=== PATIENT | male | born 1975 | race Caucasian/White ===

== ENCOUNTER 2020-03-16 18:04 | Emergency (ER) | payer BC, OTHER ==
[2020-03-16] MEDS ORDERED: Lidocaine 1% 10 ML MDV INJECT ONE (18:27)
[2020-03-16] MEDS ORDERED: Diphtheria,Pertussis(Acell),Tetanus Vaccine 0.5 ML Syringe IM ONE (18:28)
--- NOTE | 2020-03-16 18:33 | EDM.PDOC ---
ED HPI GENERAL MEDICAL PROBLEM - General Chief Complaint: Laceration Stated Complaint: FINGER LAC Time Seen by Provider: 03/16/20 18:25 Source of Information: Reports: Patient History Limitations: Reports: No Limitations - History of Present Illness INITIAL COMMENTS - FREE TEXT/NARRATIVE: 84-year-old male presents to the ED after stabbing himself accidentally with a hunting knife [place]. He states the piece of meat he was cutting off of one of the legs came loose and his hand flew back striking the tip of his hunting knife on the dorsal aspect of his thumb. Suffered approximately 2.5 cm laceration across the dorsal aspect of his thumb. Cannot remember when his last tetanus toxoid was administered. Will be updated today. Wound looks like it will require suture repair. Onset: Today, Sudden Duration: Hour(s):, Other (Bleeding is stopped.) Location: Reports: Upper Extremity, Left (Left dorsal thumb just proximal to the PIP joint.) Quality: Reports: Ache Severity: Mild Improves with: Reports: Rest Worsens with: Reports: Movement Context: Denies: Activity, Exercise, Lifting, Sick Contact, Trauma Associated Symptoms: Denies: No Other Symptoms, Confusion, Chest Pain, Cough, cough w sputum, Diaphoresis, Fever/Chills, Headaches, Loss of Appetite, Malaise, Syncope Treatments PRESS [employer]ER: Reports: Other (see below) - Related Data Allergies Allergy/AdvReac Type Severity Reaction Status Date / Time No Known Allergies Allergy Verified 03/16/20 18:26 Social & Family History - Tobacco Use Tobacco Use Status *Q: Never Tobacco User - Caffeine Use Caffeine Use: Reports: Coffee - Recreational Drug Use Recreational Drug Use: No - Living Situation & Occupation Living situation: Reports: Occupation: Employed ED ROS GENERAL - Review of Systems Review Of Systems: See Below Constitutional: Reports: No Symptoms HEENT: Reports: No Symptoms Respiratory: Reports: No Symptoms Cardiovascular: Reports: No Symptoms Endocrine: Reports: No Symptoms GI/Abdominal: Reports: No Symptoms : Reports: No Symptoms Musculoskeletal: Reports: No Symptoms Skin: Reports: No Symptoms Neurological: Reports: No Symptoms Psychiatric: Reports: No Symptoms Hematologic/Lymphatic: Reports: No Symptoms ED EXAM, SKIN/RASH Exam: See Below Exam Limited By: No Limitations General Appearance: Alert, WD/WN, No Apparent Distress, Other (Temperature is 37.4 but he does not feel warm to palpation. Heart rate is 67 respiratory 16 with O2 sats of 97% room air BP is 134/85.) Extremities: Other (Examination was limited to his left thumb. He has suffered a laceration across the dorsal left thumb just proximal to the PIP joint. The tensor tendons are intact. There is some mild numbness at the site of the laceration but he can feel quite well tactilely on the tip of the finger. Wound will require suture repair. It is approximate 2.5 cm in length.) Neurological: Alert, Oriented, CN II-XII Intact, Normal Cognition Psychiatric: Normal Affect, Normal Mood Skin: Warm, Dry, Normal Color, No Rash, Other (Duration dorsal left thumb as described in history of present illness) Location, Skin: Upper Extremity, Left (2.5 cm laceration across the dorsal aspect of his left thumb just proximal to the PIP joint) ED SKIN PROCEDURES - Laceration/Wound Repair Left Middle Digit - 1st (Thumb) Appearance: Subcutaneous, Clean Distal NVT: Neuro & Vascular Intact Anesthetic Type: Local Local Anesthesia - Lidocaine (Xylocaine): 1% Plain Local Anesthetic Volume: 2cc Skin Prep: Providone-Iodine (Betadine) Exploration/Debridement/Repair: Wound Explored Closed with: Sutures Lac/Wound length In cm: 5 Suture Size: 4-0 Suture Type: Nylon, Interrupted, Simple Course - Vital Signs Last Recorded V/S: Last Vital Signs Temp 37.4 C 03/16/20 18:24 Pulse 67 03/16/20 18:24 Resp 16 03/16/20 18:24 BP 134/85 03/16/20 18:24 Pulse Ox 97 03/16/20 18:24 - Orders/Labs/Meds Orders: Active Orders 24 hr Category Date Time Status Vaccines to be Administered [RC] PER UNIT ROUTINE Care 03/16/20 18:28 Active Meds: Medications Discontinued Medications Generic Name Dose Route Start Last Admin Trade Name Freq PRN Reason Stop Dose Admin Diphtheria/Tetanus/Acell Pertussis 0.5 ml 03/16/20 18:28 03/16/20 18:58 Adacel IM 03/16/20 18:29 0.5 ml .ONCE ONE Administration Lidocaine HCl 10 ml 03/16/20 18:27 03/16/20 18:58 Xylocaine 1% INJECT 03/16/20 18:28 10 ml ONETIME ONE Administration - Radiology Interpretation Free Text/Narrative:: 44-year-old male presents to the ED with an accidental stab wound to the dorsal aspect of his left thumb that occurred while he was cleaning a deer. He has suffered a 2.5 cm laceration across the dorsal aspect of his left thumb just proximal to the PIP joint. The wound has stopped bleeding. Wound edges are little jagged. Extensor tendon appears to be intact. Tactile sensation is normal as well. Wound will be sutured under local anesthetic x4 using 3-0 nylon. Sutures will need to be removed in 10 days time. Tetanus diphtheria and pertussis vaccine is to be updated today. - Re-Assessments/Exams Free Text/Narrative Re-Assessment/Exam: 03/16/20 19:25 2.5 cm laceration dorsal aspect of the left thumb was soaked in 10% Betadine and saline solution. The wound was explored and the tendon is okay. Wound was then closed under local anesthetic using 1% lidocaine times five 4-0 Ethilon sutures. Patient patient will daily cleanse the wound at home with soap and water and apply topical antibiotic ointment. He will cover to keep it clean. Sutures will need to be removed in 10 days time. Departure - Departure Time of Disposition: 19:22 Disposition: Home, Self-Care 01 Condition: Fair Clinical Impression: Laceration of finger Qualifiers: Encounter type: initial encounter Finger: thumb Damage to nail status: without damage Foreign body presence: without foreign body Laterality: left Qualified Code(s): S61.012A - Laceration without foreign body of left thumb without damage to nail, initial encounter - Discharge Information *PRESCRIPTION DRUG MONITORING PROGRAM REVIEWED*: Not Applicable *COPY OF PRESCRIPTION DRUG MONITORING REPORT IN PATIENT KEON: Not Applicable Instructions: Laceration Care, Adult, Wound Care, Adult, Sutured Wound Care, [id number] Referrals: PCP,Not In Area [Primary Care Provider] - Forms: ED Department Discharge Additional Instructions: Patient in the emergency room today in regards to a laceration to the dorsal aspect of your left thumb that occurred accidentally while cleaning a deer. This resulted in a 2.5 cm laceration across the dorsal thumb that required laceration repair. 5 sutures were placed under local anesthetic to provide wound closure and to stop the bleeding. Treatment at home is to daily cleanse the wound with soap and water. Showering is okay. Wound should not be soaked underwater until the sutures are removed. Placed topical antibiotic such as bacitracin Polysporin on the wound once daily and cover with a bandage to keep clean. Sutures will need to be removed in 10 days time. Your tetanus diphtheria pertussis vaccine has been updated today and is good for the next 10 years. Sepsis Event Note (ED) - Evaluation Sepsis Screening Result: No Definite Risk - Focused Exam Vital Signs: Vital Signs Temp Pulse Resp BP Pulse Ox 03/16/20 18:24 37.4 C 67 16 134/85 97 - My Orders Last 24 Hours: My Active Orders 03/16/20 18:28 Vaccines to be Administered [RC] PER UNIT ROUTINE - Assessment/Plan Last 24 Hours: My Active Orders 03/16/20 18:28 Vaccines to be Administered [RC] PER UNIT ROUTINE
== END 2020-03-16 19:30 | disposition home or self-care (01) ==
LOC: JD.ED 18:04
DX: S61.012A Laceration without foreign body of left thumb without damage to nail, initial encounter (principal); Z23 Encounter for immunization; W26.0XXA Contact with knife, initial encounter
CPT/HCPCS: 12001; 90471; 90715; 99282; J2001; 12002